=== PATIENT | female | born 1950 | race Caucasian/White ===

== ENCOUNTER 2016-09-09 12:32 | Observation (INO) | payer BC ==
[~2016-09-09] VITALS: Ht 162.6 cm; Wt 85.5 kg
[~2016-09-09 12:32] MED LIST: ALBU1AER9 INH; ASPI81TA28 PO; ATOR-24 PO; CALC0.009 TOP; CLOB-65 TOP; CYCL10TA6 PO; ERGO1CAP35 PO; FENO145T26 PO; INSUINJ14 SC; LEVO75TA5 PO; LISI-461 PO; LPR50X PO; METF1TAB53 PO; NTRGSL/4 UT; OXYC-57 PO
[2016-09-09 13:37] LABS: HEMATOCRIT 38.2 % (37-47); MEAN CELL VOLUME 81.3 fL (80-100); MEAN CORPUSCULAR HEMOGLOBIN 27.2 pg (25-34); MEAN CORPUSCULAR HGB CONC 33.5 g/dl (32-36); MEAN PLATELET VOLUME 10.3 fL (7.4-10.4); PLATELET COUNT 286 K/uL (130-400)
--- NOTE | 2016-09-09 13:37 | DIAGNOSTIC IMAGING REPORT ---
CHEST ONE VIEW PORTABLE CLINICAL HISTORY: chest pain dyspnea COMPARISON STUDY: No previous studies for comparison. FINDINGS: The bones soft tissues and hemidiaphragms are normal. The cardiomediastinal silhouette is normal. The lungs are clear. The pulmonary vasculature is normal. IMPRESSION: Negative chest. Electronically signed by: Hermilo Kraus M.D. 09/09/2016 1:36 PM Dictated Date/Time: 09/09/2016 1:36 PM
[2016-09-09 13:46] LABS: INR 0.9 (0.9-1.1); PARTIAL THROMBOPLASTIN RATIO 0.9; PROTHROMBIN TIME (PATIENT) 9.8 SECONDS (9.0-12.0)
[2016-09-09 13:56] LABS: BUN/CREATININE RATIO 14.5 (10-20); CALCIUM 9.1 mg/dl (8.5-10.1); CREATININE 0.73 mg/dl (0.60-1.20)
[2016-09-09 14:00] LABS: ALB/GLOB RATIO 0.9 (0.9-2); CKMB/CK RATIO 1.5 (0-3.0)
[2016-09-09] MEDS ORDERED: INSDGIPEN SQ (14:13)
[2016-09-09] MEDS ORDERED: ERGO1TAB10 PO (14:13)
[2016-09-09] MEDS ORDERED: PRLSR20 PO (14:13)
[2016-09-09] MEDS ORDERED: PRAV20TA PO (14:13)
[2016-09-09] MEDS ORDERED: IV FLUIDS COMPLETED PRN (15:45)
[2016-09-09] MEDS ORDERED: ASPIRIN 324 MG CHEW PO STA (15:59)
[2016-09-09] MEDS ORDERED: ONDANSETRON INJ 2 MG/ML 2 ML VIAL IV PRN (16:15)
[2016-09-09] MEDS ORDERED: ACETAMINOPHEN 325 MG TAB PO PRN (16:15)
[2016-09-09] MEDS ORDERED: NITROGLYCERIN 0.4 MG SL PER TAB CHARGE SL PRN (16:15)
--- NOTE | 2016-09-09 16:22 | History and Physical ---
History & Physical Date of Service Sep 09, 2016. History & Physical This is a 65 year old female with PMH of insulin dependent DM2, HTN, HLD, hypothyroidism presents with chest pain radiating to the shoulder blades, left arm and relieved with nitro. She states that she developed this pain while at rest and called cardiology, Dr. Martinez's office and was told to come in to the hospital. She has had a diagnostic cardiac cath in 2014, showing 30% disease, managed medically with aspirin, b-beverly, and statin. She states that the chest pain was associated with some shortness of breath. After coming to the ER and getting another nitro, her chest pain resolved. No other symptoms currently. VITALS: Last Vital Signs Documentation Date Time Temp Pulse Resp B/P Pulse Ox O2 Delivery O2 Flow Rate FiO2 09/09/16 15:17 77 20 152/85 97 Room Air 09/09/16 12:40 37.0 GEN: no acute distress HEENT: NC/AT CVS: +S1, S2, RRR LUNGS: CTA b/l, no wheezing ABD: soft, NT/ND EXT: no edema b/l LE Chest Pain, r/o ACS multiple risk factors: DM2, HTN, HLD cardiac cath in 2014 showed mild 30% disease initial set of cardiac enzymes negative no significant findings on EKG trend cardiac enzymes echo ordered cardiology consulted continue aspirin, b-beverly, statin for now was on CCB at one point, but due to vascular insufficiency, this was d/c'd DM2 check Ha1c insulin dependent DM2 insulin sliding scale glycemic control consultation
[2016-09-09] MEDS ORDERED: LSX20 PO (16:23)
[2016-09-09] MEDS ORDERED: DPRSO15 EXT (16:23)
[2016-09-09] MEDS ORDERED: PRAV40TA2 PO (16:25)
[2016-09-09] MEDS ORDERED: ALBUTEROL HFA 8 GM INHALER INH PRN (16:30)
[2016-09-09] MEDS ORDERED: GLUCOSE 40% GEL 15 GM TUBE PO PRN (16:30)
[2016-09-09] MEDS ORDERED: GLUCAGON FOR INJ 1 MG VIAL SQ PRN (16:30)
[2016-09-09] MEDS ORDERED: DEXTROSE 50% 50 ML SYR IV PRN (16:30)
[2016-09-09] MEDS ORDERED: GLUCOSE 10 TABS/TUBE PO PRN (16:30)
[2016-09-09 17:20] VITALS: BP 139/67; PULSE 89; TEMP 37; O2SAT 95; BMI 32.4
[2016-09-09] MEDS ORDERED: PHARMACY GLYCEMIC MGMT CONSULT PRN (18:00)
--- NOTE | 2016-09-09 19:05 | History and Physical ---
History & Physical Date & Time of Service: Sep 09, 2016 at 16:25 Chief Complaint: Hard Time Breathing, Some Chest Pain Primary Care Physician: Alexi Sutherland M.D. History of Present Illness Source: patient, clinic records This is a 65 y/o female with PMH of DM type 2, HTN, HL, s/p cath in February 2015 showing mild luminal irregularities, who presents to the ED with left arm pain. Pt reports episodes of ill defined pain going down her left arm and sharp pain between her shoulder blades. 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 The episodes lasted 5 minutes and were relieved completely with nitro. She had associated diaphoresis and SOB with the episodes. Patient states back in February 2015 prior to her catheterization she was having similar pain. Pt reports calling Dr. Martinez 's office and was told to come to the ER. Pt additionally reports a dry cough the past few nights while lying down. She had a few episodes of palpitations described as "heart pounding" last night and today. Pt denies dizziness, syncope , MCKEON, orthopnea, abdominal pain, N/V, urinary change, weight gain, edema, calf pain. Denies recent travel or surgery. She had baby ASA this morning. Past Medical/Surgical History Medical Problems: (1) Dyslipidemia Status: Chronic (2) GERD (gastroesophageal reflux disease) Status: Chronic (3) Hypertension Status: Chronic (4) Hypothyroidism Status: Chronic (5) Psoriasis Status: Chronic (6) Type 2 diabetes mellitus Status: Chronic (7) Venous insufficiency Status: Chronic Surgical Problems: (1) H/O cardiac catheterization Status: Resolved (2) H/O cardiac catheterization Permanent Comment: February 2015- no obstructive disease, mild luminal irregularities of less than 30% Status: Chronic (3) History of hysterectomy Status: Chronic (4) S/P appendectomy Status: Chronic (5) S/P cholecystectomy Status: Resolved (6) S/P cholecystectomy Status: Chronic (7) S/P hysterectomy Status: Resolved (8) S/P tonsillectomy and adenoidectomy Status: Chronic Family History FH: CAD (coronary artery disease) FATHER (onset in 60s. CABG x 5. ) Social History Smoking Status: Former Smoker (quit 20 years ago) Alcohol Use: none Drug Use: none Marital Status: Housing status: lives with significant other Occupational Status: employed Allergies Coded Allergies: No Known Allergies (Unverified , 09/09/16) Home Medications Scheduled Aspirin (Aspirin Ec), 81 MG PO DAILY Fenofibrate (Tricor ), 145 MG PO DAILY Insulin Aspart Penfill (Novolog Penfill), 1 DOSE SC ACHS Insulin Glargine (Lantus Solostar), 53 UNITS SQ PM Levothyroxine Sodium (Levothyroxine Sodium), 1 TAB PO DAILY Lisinopril (Lisinopril), 20 MG PO DAILY Metformin Hcl (Glucophage Ext Rel), 1,000 MG PO BID Metoprolol Tartrate (Metoprolol Tartrate), 50 MG PO BID Omeprazole (Prilosec), 40 MG PO DAILY Pravastatin Sodium (Pravastatin Sodium), 40 MG PO DAILY Scheduled PRN Albuterol (Proair Hfa), 2 PUFFS INH QID PRN for SOB/Wheezing Betamethasone Dip (Betamethasone Dipropionat), 1 APPLN EXT BID PRN for psoriasis Furosemide (Furosemide), 20 MG PO DAILY PRN for edema/ weight gain Nitroglycerin (Nitrostat), 0.4 MG UT PRN PRN for Chest Pain Review of Systems Ten point review of systems performed with pertinent positives and negatives noted in HPI. Physical Exam Vital Signs Date Time Temp Pulse Resp B/P Pulse Ox O2 Delivery O2 Flow Rate FiO2 09/09/16 15:17 77 20 152/85 97 Room Air 09/09/16 13:33 74 09/09/16 12:40 37.0 79 20 172/83 95 Room Air General Appearance: no apparent distress, + pertinent finding (pleasant alert 65 y/o female) Head: normocephalic, atraumatic Eyes: normal inspection, PERRL, EOMI, sclerae normal ENT: hearing grossly normal, pharynx normal Neck: supple, no JVD, no carotid bruits, trachea midline Respiratory/Chest: lungs clear, normal breath sounds, no respiratory distress Cardiovascular: regular rate, rhythm, no murmur, normal peripheral pulses Abdomen/GI: normal bowel sounds, non tender, soft Back: + pertinent finding (no thoracic paraspinal muscle tenderness) Extremities/Musculoskelatal: no calf tenderness, no pedal edema, + pertinent finding (+ mild point tenderness on left shoulder and mild pain on ROM left shoulder) Neurologic/Psych: alert, normal mood/affect, oriented x 3, + pertinent finding (grossly nonfocal) Skin: normal color, warm/dry, no rash (no rash on the chest) Diagnostics Laboratory Results Results Past 24 Hours Test 09/09/16 13:30 09/09/16 13:32 09/09/16 15:30 Range/Units White Blood Count 9.10 4.8-10.8 K/uL Red Blood Count 4.70 4.2-5.4 M/uL Hemoglobin 12.8 12.0-16.0 g/dL Hematocrit 38.2 37-47 % Mean Corpuscular Volume 81.3 80-100 fL Mean Corpuscular Hemoglobin 27.2 25-34 pg Mean Corpuscular Hemoglobin Concent 33.5 32-36 g/dl RDW Standard Deviation 40.8 36.4-46.3 fL RDW Coefficient of Variation 13.6 11.5-14.5 % Platelet Count 286 130-400 K/uL Mean Platelet Volume 10.3 7.4-10.4 fL Prothrombin Time 9.8 9.0-12.0 SECONDS Prothromb Time International Ratio 0.9 0.9-1.1 Activated Partial Thromboplast Time 23.4 21.0-31.0 SECONDS Partial Thromboplastin Ratio 0.9 D-Dimer 430 0-500 ug/L FEU Sodium Level 143 136-145 mmol/L Potassium Level 4.0 3.5-5.1 mmol/L Chloride Level 108 98-107 mmol/L Carbon Dioxide Level 25 21-32 mmol/L Anion Gap 10.0 3-11 mmol/L Blood Urea Nitrogen 11 7-18 mg/dl Creatinine 0.73 0.60-1.20 mg/dl Est Creatinine Clear Calc Drug Dose 84.9 ml/min Estimated GFR () 101.6 Estimated GFR (Non- 87.7 BUN/Creatinine Ratio 14.5 10-20 Random Glucose 113 70-99 mg/dl Calcium Level 9.1 8.5-10.1 mg/dl Total Bilirubin 0.3 0.2-1 mg/dl Aspartate Amino Transf (AST/SGOT) 22 15-37 U/L Alanine Aminotransferase (ALT/SGPT) 52 12-78 U/L Alkaline Phosphatase 85 45-117 U/L Total Creatine Kinase 48 26-192 U/L Creatine Kinase MB 0.7 0.5-3.6 ng/ml Creatine Kinase MB Ratio 1.5 0-3.0 Total Protein 7.2 6.4-8.2 gm/dl Albumin 3.5 3.4-5.0 gm/dl Globulin 3.7 2.5-4.0 gm/dl Albumin/Globulin Ratio 0.9 0.9-2 Bedside Troponin I 0.000 0-0.045 ng/ml Bedside Glucose 80 70-90 mg/dl Diagnostic Radiology CHEST ONE VIEW PORTABLE CLINICAL HISTORY: chest pain dyspnea COMPARISON STUDY: No previous studies for comparison. FINDINGS: The bones soft tissues and hemidiaphragms are normal. The cardiomediastinal silhouette is normal. The lungs are clear. The pulmonary vasculature is normal. IMPRESSION: Negative chest. EKG NSR, 77 bpm, nonspecific T wave abnormality in lateral leads. T wave abnormality appears improved on my comparison with outpatient EKG in [facility] from 04/2016 Impression Assessment and Plan CHEST PAIN Rule out ACS; risk factors include DM, HTN, HL, positive family hx Pain resolved with nitro Cardic cath February 2015- no obstructive disease, mild luminal irregularities of less than 30% EKG no significant change Initial troponin negative; d dimer negative Trend serial cardiac enzymes Check echo Continue aspirin, BB, MIRTHA-I, statin Check lipid panel in am DM TYPE 2 Insulin dependent Consult pharmacy for glycemic control Check A1c in am HYPERTENSION BP initially elevated; now controlled Continue metoprolol and lisinopril HYPOTHYROIDISM Check TSH Continue levothyroxine DVT PROPHYLAXIS Lovenox SQ Patient seen in collaboration with Dr. Taylor. Please see his addendum. VTE Prophylaxis VTE Risk Assessment Done? Y/N: Yes Risk Level: Moderate
--- NOTE | 2016-09-09 19:25 | EMERGENCY ROOM VISIT NOTE ---
History Report prepared by Steven: Carol Billings Under the Supervision of: Dr. Matt Courtney M.D. First contact with patient: 14:17 Chief Complaint: SHORTNESS OF BREATH Stated Complaint: HARD TIME BREATHING, SOME CHEST PAIN Nursing Triage Summary: Triage note: Pt reports since yesterday she has had shortness of breath and pain in left arm and between shoulder blades. History of Present Illness The patient is a 65 year old female who presents to the Emergency Room with complaints of persistent shortness of breath that began yesterday. She currently rates her discomfort as a 4/10 in severity. The patient states that yesterday she noticed some left sided chest discomfort. She states that she left work early, because she noticed pain radiating down her left arm. The patient states that she noticed increased pain with a deep breath, and states that she didn't feel like she could get enough air. The patient states that she took some nitro, and notes relief of her symptoms. She states that throughout last night and this morning she has noticed tachycardia. The patient states that she has intermittently had chest pain since yesterday. She additionally associates diaphoresis with her symptoms. The patient notes a recent cough with lying down, but denies any other cold symptoms. She states that she takes aspirin daily. The patient notes a history of a cardiac catheterization 1 1/2 years ago that revealed a few blockages. She states that nothing was done at that time. Pt denies LOC, headache, fevers, chills, visual changes, neck pain, tearing pain radiating to the back, personal history or family history of aneurysm or pulmonary embolism, uncontrolled hypertension, breathing difficulties, leg swelling, coagulation abnormalities, prolonged travel, recent surgery or immobilization, nausea, vomiting, abdominal pain, melena, hematochezia, urinary symptoms, numbness, weakness, lymphadenopathy, rash, or other complaints. Source of History: patient Onset: yesterday Position: other (global) Symptom Intensity: 4/10 Quality: other (shortness of breath) Timing: other (persistent) Associated Symptoms: + chest pain, + cough, + diaphoresis Note: Associated Symptoms: left arm pain Review of Systems See HPI for pertinent positives and negatives. A total of ten systems were reviewed and were otherwise negative. Past Medical & Surgical Medical Problems: (1) Chest pain (2) Dyslipidemia (3) GERD (gastroesophageal reflux disease) (4) Hypertension (5) Hypothyroidism (6) Psoriasis (7) Type 2 diabetes mellitus (8) Venous insufficiency Surgical Problems: (1) H/O cardiac catheterization (2) H/O cardiac catheterization (3) History of hysterectomy (4) S/P appendectomy (5) S/P cholecystectomy (6) S/P cholecystectomy (7) S/P hysterectomy (8) S/P tonsillectomy and adenoidectomy Family History FH: CAD (coronary artery disease) Social History Smoking Status: Never Smoker Marital Status: Housing Status: lives with significant other Occupation Status: employed Current/Historical Medications Scheduled Aspirin (Aspirin Ec), 81 MG PO DAILY Fenofibrate (Tricor ), 145 MG PO DAILY Insulin Aspart Penfill (Novolog Penfill), 1 DOSE SC ACHS Insulin Glargine (Lantus Solostar), 53 UNITS SQ PM Levothyroxine Sodium (Levothyroxine Sodium), 1 TAB PO DAILY Lisinopril (Lisinopril), 20 MG PO DAILY Metformin Hcl (Glucophage Ext Rel), 1,000 MG PO BID Metoprolol Tartrate (Metoprolol Tartrate), 50 MG PO BID Omeprazole (Prilosec), 40 MG PO DAILY Pravastatin Sodium (Pravastatin Sodium), 40 MG PO DAILY Scheduled PRN Albuterol (Proair Hfa), 2 PUFFS INH QID PRN for SOB/Wheezing Betamethasone Dip (Betamethasone Dipropionat), 1 APPLN EXT BID PRN for psoriasis Furosemide (Furosemide), 20 MG PO DAILY PRN for edema/ weight gain Nitroglycerin (Nitrostat), 0.4 MG UT PRN PRN for Chest Pain Allergies Coded Allergies: No Known Allergies (Unverified , 09/09/16) Physical Exam Vital Signs Date Time Temp Pulse Resp B/P Pulse Ox O2 Delivery O2 Flow Rate FiO2 09/09/16 16:51 73 20 149/83 96 Room Air 09/09/16 15:17 77 20 152/85 97 Room Air 09/09/16 13:33 74 09/09/16 12:40 37.0 79 20 172/83 95 Room Air Physical Exam GENERAL: Awake, alert, well-appearing, in no distress HENT: Normocephalic, atraumatic. Oropharynx unremarkable. EYES: Normal conjunctiva. Sclera non-icteric. NECK: Supple. No nuchal rigidity. FROM. No JVD. RESPIRATORY: Clear to auscultation. CARDIAC: Regular rate, normal rhythm. Extremities warm and well perfused. Pulses equal. ABDOMEN: Soft, non-distended. No tenderness to palpation. No rebound or guarding. No masses. RECTAL: Deferred. MUSCULOSKELETAL: Chest examination reveals no tenderness. The back is symmetrical on inspection without obvious abnormality. There is no CVA tenderness to palpation. No joint edema. LOWER EXTREMITIES: Calves are equal size bilaterally and non-tender. No edema. No discoloration. NEURO: Normal sensorium. No sensory or motor deficits noted. SKIN: No rash or jaundice noted. Medical Decision & Procedures ER Provider Diagnostic Interpretation: X-ray: Per my interpretation, radiologist review. CHEST ONE VIEW PORTABLE CLINICAL HISTORY: chest pain dyspnea COMPARISON STUDY: No previous studies for comparison. FINDINGS: The bones soft tissues and hemidiaphragms are normal. The cardiomediastinal silhouette is normal. The lungs are clear. The pulmonary vasculature is normal. IMPRESSION: Negative chest. Electronically signed by: Hermilo Kraus M.D. 09/09/2016 1:36 PM Dictated Date/Time: 09/09/2016 1:36 PM Laboratory Results 09/09/16 13:30 09/09/16 13:30 Test 09/09/16 13:30 09/09/16 13:32 09/09/16 15:30 Red Blood Count 4.70 M/uL (4.2-5.4) Mean Corpuscular Volume 81.3 fL (80-100) Mean Corpuscular Hemoglobin 27.2 pg (25-34) Mean Corpuscular Hemoglobin Concent 33.5 g/dl (32-36) RDW Standard Deviation 40.8 fL (36.4-46.3) RDW Coefficient of Variation 13.6 % (11.5-14.5) Mean Platelet Volume 10.3 fL (7.4-10.4) Prothrombin Time 9.8 SECONDS (9.0-12.0) Prothromb Time International Ratio 0.9 (0.9-1.1) Activated Partial Thromboplast Time 23.4 SECONDS (21.0-31.0) Partial Thromboplastin Ratio 0.9 D-Dimer 430 ug/L FEU (0-500) Anion Gap 10.0 mmol/L (3-11) Est Creatinine Clear Calc Drug Dose 84.9 ml/min Estimated GFR () 101.6 Estimated GFR (Non- 87.7 BUN/Creatinine Ratio 14.5 (10-20) Calcium Level 9.1 mg/dl (8.5-10.1) Total Bilirubin 0.3 mg/dl (0.2-1) Aspartate Amino Transf (AST/SGOT) 22 U/L (15-37) Alanine Aminotransferase (ALT/SGPT) 52 U/L (12-78) Alkaline Phosphatase 85 U/L (45-117) Total Protein 7.2 gm/dl (6.4-8.2) Albumin 3.5 gm/dl (3.4-5.0) Globulin 3.7 gm/dl (2.5-4.0) Albumin/Globulin Ratio 0.9 (0.9-2) Bedside Troponin I 0.000 ng/ml (0-0.045) Bedside Glucose 80 mg/dl (70-90) Laboratory results reviewed by me ECG Indication: chest pain, SOB/dyspnea Rate (beats per minute): 77 Rhythm: normal sinus Findings: nonspecific-ST abn, no ectopy, other (normal intervals) ED Course 1423: The patient was evaluated in room A4B. A complete history and physical exam was performed. I discussed all the exam findings with her and I discussed the treatment plan. She verbalized complete understanding and agreement. She is going to be evaluated for further treatment. 1456: I discussed the patients case with Selena Ruiz PA-C. She is going to evaluate the patient for further treatment. Medical Decision Triage Nursing notes reviewed. The patient's presentation and history were concerning for chest pain. Etiologies such as cardiac ischemia, aortic dissection, pulmonary embolism, pneumonia, pneumothorax, musculoskeletal, infections, gastrointestinal, as well as others were entertained. The patient was evaluated. She had already taken aspirin. Patient had a nonischemic ECG. She was currently pain-free. Her CBC, chemistry panel, LFTs, lipase, d-dimer, cardiac markers and chest x-ray were unremarkable. She has known coronary disease. Given her symptoms. She will need further evaluation and management. Her actionscript developer office directed her this way. I did consult with internal medicine. The patient was evaluated in the Emergency Room and admitted for further treatment. The chart was completed utilizing [employer] Speech voice recognition software. Grammatical errors, random word insertions, pronoun errors, and incomplete sentences are an occasional consequence of this system due to software limitations, ambient noise, and hardware issues. Any formal questions or concerns about the content, text, or information contained within the body of this dictation should be directly addressed to the physician for clarification. Consults Time Called: [id number] Consulting Physician: Selena Ruiz PA-C Returned Call: [phone] I discussed the patients case with Selena Ruiz PA-C. She is going to evaluate the patient for further treatment. Impression Primary Impression: Left sided chest pain Scribe Attestation The scribe's documentation has been prepared under my direction and personally reviewed by me in its entirety. I confirm that the note above accurately reflects all work, treatment, procedures, and medical decision making performed by me. Departure Information Dispostion Being Evaluated By Hospitalist Referrals No Doctor, Assigned (PCP)
[2016-09-09 19:26] VITALS: BP 158/70; PULSE 80; TEMP 37.1; O2SAT 97
[2016-09-09 19:38] LABS: CKMB/CK RATIO 1.7 (0-3.0)
[2016-09-09] MEDS: INSULIN ASPART 100 UNITS/ML 3 ML PEN SC SCH (21:00)
[2016-09-09] MEDS: METOPROLOL TARTRATE 50 MG TAB PO SCH (21:03)
[2016-09-09] MEDS ORDERED: INSULIN GLARGINE SOLOSTAR 100 UNITS/ML 3 ML PEN SC SCH (22:30)
[2016-09-09 23:42] VITALS: BP 115/70; PULSE 65; TEMP 36.9; O2SAT 94
[2016-09-09 23:59] VITALS: O2SAT 94
[2016-09-10 04:23] VITALS: BP 116/74; PULSE 80; TEMP 36.6; O2SAT 93
[2016-09-10] MEDS ORDERED: LEVOTHYROXINE 75 MCG TAB PO SCH (06:00)
[2016-09-10 07:33] VITALS: BP 129/70; PULSE 79; TEMP 36.9; O2SAT 93
[2016-09-10 08:41] LABS: CHOLESTEROL/HDL RATIO 7.7; THYROID STIMULATING HORMONE 0.262 uIu/ml (0.300-4.500)
[2016-09-10] MEDS: METOPROLOL TARTRATE 50 MG TAB PO SCH (08:46)
[2016-09-10] MEDS: INSULIN ASPART 100 UNITS/ML 3 ML PEN SC SCH ×3 (08:52→17:16)
[2016-09-10 08:56] LABS: ESTIMATED AVERAGE GLUCOSE 209 mg/dl; HA1C FLAG Normal (Normal)
[2016-09-10] MEDS ORDERED: FENOFIBRATE 145 MG TAB PO SCH (09:00)
[2016-09-10] MEDS ORDERED: PANTOprazole SOD 40 MG TAB PO SCH (09:00)
[2016-09-10] MEDS ORDERED: ENOXAPARIN 40 MG/0.4 ML SYR SC SCH (09:00)
[2016-09-10] MEDS ORDERED: ASPIRIN 81 MG ECTAB PO SCH (09:00)
[2016-09-10] MEDS ORDERED: INSULIN GLARGINE SOLOSTAR 100 UNITS/ML 3 ML PEN SC SCH ×2 (09:00→21:00)
[2016-09-10] MEDS ORDERED: LISINOPRIL 20 MG TAB PO SCH (09:00)
[2016-09-10] MEDS ORDERED: PRAVASTATIN SOD 40 MG TAB PO SCH (09:00)
[2016-09-10] MEDS ORDERED: CALCIUM CARBONATE 500 MG CHEWABLE PO PRN (10:30)
[2016-09-10] MEDS ORDERED: PERFLUTREN LIPID MICROSPHERE (DEFINITY) IV ONE (10:34)
--- NOTE | 2016-09-10 10:37 | Progress Note ---
Medicine Progress Note Date & Time of Visit: Sep 10, 2016 at 10:32. Subjective seen resting in bed, comfortable denies recurrence of chest or arm discomfort since admission no dyspnea, dizziness, nausea reports mild heartburn but no dysphagia, poor appetite, changes with BM no other symptoms Objective Last 8 Hrs Date Time Temp Pulse Resp B/P Pulse Ox O2 Delivery O2 Flow Rate FiO2 09/10/16 08:00 Room Air 09/10/16 07:33 36.9 79 18 129/70 93 Room Air 09/10/16 04:23 36.6 80 18 116/74 93 Room Air 09/10/16 04:00 Room Air Physical Exam: General- oriented x 3, not in distress, speaks in sentences with no effort Eyes-anicteric ENT- oropharynx clear Neck- supple, no JVD, no adenopathy, no thyromegaly Lungs- clear breath sounds bilaterally, no rales/wheezes Heart- normal rate, regular rhythm; no murmurs Abdomen- normal bowel sounds, soft, nontender Extremities- no pretibial edema, no calf tenderness; peripheral pulses intact Neuro- alert, oriented x 3;no gross deficits Skin- warm & dry Laboratory Results: Last 24 Hours Test 09/09/16 13:30 09/09/16 13:32 09/09/16 15:30 09/09/16 18:59 White Blood Count 9.10 K/uL Red Blood Count 4.70 M/uL Hemoglobin 12.8 g/dL Hematocrit 38.2 % Mean Corpuscular Volume 81.3 fL Mean Corpuscular Hemoglobin 27.2 pg Mean Corpuscular Hemoglobin Concent 33.5 g/dl RDW Standard Deviation 40.8 fL RDW Coefficient of Variation 13.6 % Platelet Count 286 K/uL Mean Platelet Volume 10.3 fL Prothrombin Time 9.8 SECONDS Prothromb Time International Ratio 0.9 Activated Partial Thromboplast Time 23.4 SECONDS Partial Thromboplastin Ratio 0.9 D-Dimer 430 ug/L FEU Sodium Level 143 mmol/L Potassium Level 4.0 mmol/L Chloride Level 108 mmol/L Carbon Dioxide Level 25 mmol/L Anion Gap 10.0 mmol/L Blood Urea Nitrogen 11 mg/dl Creatinine 0.73 mg/dl Est Creatinine Clear Calc Drug Dose 84.9 ml/min Estimated GFR () 101.6 Estimated GFR (Non- 87.7 BUN/Creatinine Ratio 14.5 Random Glucose 113 mg/dl Calcium Level 9.1 mg/dl Total Bilirubin 0.3 mg/dl Aspartate Amino Transf (AST/SGOT) 22 U/L Alanine Aminotransferase (ALT/SGPT) 52 U/L Alkaline Phosphatase 85 U/L Total Creatine Kinase 48 U/L 48 U/L Creatine Kinase MB 0.7 ng/ml 0.8 ng/ml Creatine Kinase MB Ratio 1.5 1.7 Total Protein 7.2 gm/dl Albumin 3.5 gm/dl Globulin 3.7 gm/dl Albumin/Globulin Ratio 0.9 Bedside Troponin I 0.000 ng/ml Bedside Glucose 80 mg/dl Troponin I < 0.015 ng/ml Test 09/09/16 20:59 09/10/16 00:55 09/10/16 06:39 09/10/16 07:28 Bedside Glucose 132 mg/dl 203 mg/dl Total Creatine Kinase 48 U/L Creatine Kinase MB < 0.5 ng/ml Creatine Kinase MB Ratio Troponin I < 0.015 ng/ml Estimated Average Glucose 209 mg/dl Hemoglobin A1c 8.9 % Triglycerides Level 528 mg/dl Cholesterol Level 277 mg/dl HDL Cholesterol 36 mg/dl LDL Cholesterol, Calculated mg/dl VLDL Cholesterol, Calculated mg/dl Cholesterol/HDL Ratio 7.7 Thyroid Stimulating Hormone (TSH) 0.262 uIu/ml Assessment & Plan CHEST PAIN RULE OUT [facility] cath February 2015- no obstructive disease, mild luminal irregularities of less than 30% cardiac markers negative x 3 ekg no signs of ischemia echo: pending - cardiology consulted - possible stress test today - continue Metoprolol, Lisinopril, Pravastatin DM TYPE 2 Insulin dependent q1c 8.9 Consult pharmacy for glycemic control HYPERTENSION Continue metoprolol and lisinopril HYPOTHYROIDISM TSH: 0.26 check free t4 Continue levothyroxine HYPERTRIGLYCERIDEMIA TG 528 LDL not measurable due to elevated TG - on Pravastatin, Fenofibrate - diet, exercise monitor outpatient DVT PROPHYLAXIS Lovenox SQ DISPOSITION possible d/c home this afternoon when cleared by Bone Worker Current Inpatient Medications: Current Inpatient Medications Medications (Trade) Dose Ordered Sig/Kelsea Route Start Time Stop Time Status Last Admin Dose Admin Miscellaneous (Iv Fluids Completed) 1 ea PRN PRN N/A 09/09/16 15:45 09/09/17 15:44 Enoxaparin Sodium (Lovenox Inj) 40 mg Q24H SC 09/10/16 09:00 10/10/16 08:59 09/10/16 08:46 40 MG Acetaminophen (Tylenol Tab) 650 mg Q4H PRN PO 09/09/16 16:15 10/09/16 16:14 09/09/16 19:25 650 MG Ondansetron HCl (Zofran Inj) 4 mg Q6H PRN IV 09/09/16 16:15 10/09/16 16:14 Nitroglycerin (Nitrostat Tab) 0.4 mg UD PRN SL 09/09/16 16:15 10/09/16 16:14 Miscellaneous Information (Consult Glycemic Management Pharmacy) 1 ea UD PRN N/A 09/09/16 18:00 10/09/16 17:59 Glucose (Glucose 40% Gel) 15-30 GRAMS 15 GRAMS... UD PRN PO 09/09/16 16:30 10/09/16 16:29 Glucose (Glucose Chew Tab) 4-8 Tablets 4 Tabl... UD PRN PO 09/09/16 16:30 10/09/16 16:29 Dextrose (Dextrose 50% 50ML Syringe) 25-50ML OF 50% DW IV FOR... UD PRN IV 09/09/16 16:30 10/09/16 16:29 Glucagon (Glucagon Inj) 1 mg UD PRN SQ 09/09/16 16:30 10/09/16 16:29 Albuterol (Ventolin Hfa Inhaler) 2 puffs QID PRN INH 09/09/16 16:30 10/09/16 16:29 Aspirin (Ecotrin Tab) 81 mg DAILY PO 09/10/16 09:00 10/10/16 08:59 09/10/16 08:45 81 MG Fenofibrate (Tricor Tab) 145 mg DAILY PO 09/10/16 09:00 10/10/16 08:59 09/10/16 08:45 145 MG Levothyroxine Sodium (Synthroid Tab) 75 mcg DAILYBB PO 09/10/16 06:00 10/10/16 05:59 09/10/16 06:07 75 MCG Lisinopril (Zestril Tab) 20 mg DAILY PO 09/10/16 09:00 10/10/16 08:59 09/10/16 08:45 20 MG Metoprolol Tartrate (Lopressor Tab) 50 mg BID PO 09/09/16 21:00 10/09/16 20:59 09/10/16 08:46 50 MG Miscellaneous Information (Order Awaiting Action) 1 ea QS N/A 09/09/16 18:00 10/09/16 17:59 Pantoprazole Sodium (Protonix Tab) 40 mg QAM PO 09/10/16 09:00 10/10/16 08:59 09/10/16 08:45 40 MG Pravastatin Sodium (Pravachol Tab) 40 mg DAILY PO 09/10/16 09:00 10/10/16 08:59 09/10/16 08:45 40 MG Insulin Aspart (novoLOG ASPART) SLIDING SCALE ACHS SC 09/09/16 21:00 10/09/16 20:59 09/10/16 08:52 6 UNITS Insulin Glargine (Lantus Solostar Pen) SEE PROTOCOL BID SC 09/10/16 21:00 10/10/16 20:59
[2016-09-10 10:52] VITALS: Ht 162.6 cm; Wt 85.5 kg
[2016-09-10 11:19] VITALS: BP 125/74; PULSE 70; TEMP 36.9; O2SAT 93
--- NOTE | 2016-09-10 12:08 | CARDIOLOGY CONSULTATION ---
DATE OF CONSULTATION: 09/10/2016 REFERRING PHYSICIAN: Dr. Jordan. PRIMARY CARE PHYSICIAN: Dr. Alexi Sutherland. HISTORY OF PRESENT ILLNESS: The patient is a 65-year-old female whose history is notable for: 1. Type 2 diabetes mellitus. 2. Chronic hypertension. 3. Mixed dyslipidemia. 4. Mild coronary atherosclerosis by cardiac catheterization in February 2015 without obstructive disease. 5. Hypothyroidism. 6. Gastroesophageal reflux. The patient presents now noting symptoms which began approximately 2 days prior to admission of increasing shortness of breath and heart pounding in her chest with physical exertion. She notes no associated syncope or near syncope. On the day of admission, she has had increasing episodes and complaints, walked up a flight of stairs with laundry and noted heart pounding in throat. She felt breathless and mildly diaphoretic. She took 1 nitroglycerin with symptoms potentially aiding in complaints. Due to concern, she presented for further evaluation. On initial evaluation in the Emergency Room, pain was improved. She does note a wheezy cough, worse when lying flat, times several days. Notes no fevers or chills, though had sweats in association with issues. Notes no melena, hematochezia, dysuria or hematuria. Has been taking medications as prescribed. Notes no acute medication changes. She does have a moderately active job and noted declining exercise tolerance during activities. REVIEW OF SYSTEMS: Otherwise negative. ALLERGIES: None. MEDICATIONS: Prior to hospitalization were aspirin 81 mg per day, fenofibrate 145 mg p.o. every day, levothyroxine 75 mcg p.o. every day, lisinopril 20 mg p.o. every day, metformin 1000 mg b.i.d., metoprolol 50 mg b.i.d., omeprazole 40 mg p.o. every day, pravastatin 40 mg p.o. every day, insulin sliding scale. PAST SURGICAL HISTORY: Notable for prior total hysterectomy, tonsillectomy, appendectomy, cholecystectomy. FAMILY HISTORY: Positive for heart disease with father undergoing coronary bypass grafting in his 50s, multiple family members with history of diffuse coronary disease. SOCIAL HISTORY: The patient resides in [place]. 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 She is a nonsmoker x20 years with prior [id number] history of tobacco use prior to discontinuation. She is a rare alcohol user. PHYSICAL EXAMINATION: VITAL SIGNS: Heart rate is 79, blood pressure is 129/70, O2 saturation is 93% on room air. HEENT: Normocephalic, atraumatic. Nares without discharge. Throat was clear. LUNGS: Reveal wheezy cough with forced expiration with clear bases. CARDIOVASCULAR: Regular. There is no S3 gallop. ABDOMEN: Soft, nontender. EXTREMITIES: Without cyanosis or clubbing. There is no peripheral edema. There is no palpable cord or Homans sign. LABORATORY STUDIES: White cell count is 9.1, hemoglobin is 12.8, hematocrit is 38.2. Sodium is 143, potassium is 4.0, chloride is 108, bicarbonate is 25, BUN is 11, creatinine is 0.73. Troponin since admission are negative x2. CK and MB fractions are normal. Lipids demonstrate hypertriglyceridemia, total cholesterol 277, HDL 36. TSH is depressed at 0.26. Chest x-ray reveals no infiltrate or edema. EKGs since admission demonstrate normal tracings other than minimal nonspecific ST-segment changes and no evolution on serial testing. IMPRESSION: A 65-year-old female presents now with exertional heart pounding and chest tightness with partial relief with nitroglycerin. Symptoms were preceded by to 2- to 3-day history of increasing shortness of breath and cough, nonproductive, and intermittent cold sweats. Initial cardiac enzymes and EKGs do not reflect ischemia. Prior cardiac catheterization was last performed in February 2015 with only mild coronary atherosclerosis and no obstructive disease. Overall impression, this likely appears noncardiac in nature, possibly secondary to upper respiratory issues; however, stress echocardiography will be ordered today for further assessment given multiple risk factors with family history of premature coronary disease. We will continue current medications including lisinopril, beta beverly with metoprolol 50 b.i.d., aspirin, and lipid reduction with pravastatin and fenofibrate combination with prior intolerance of higher dose statins. Further recommendations pending results of stress testing. Will likely need evaluation of pulmonary complaints as well.
--- NOTE | 2016-09-10 13:21 | Pharmacy Progress Note ---
Glycemic Control Intl Consult Date of Service Sep 10, 2016. Scope Glycemic Pharmacist consulted by Alejandra Newsome on 09/09/16 for glycemic control and to write orders per [facility] inpatient glycemic control protocol Objective Weight (Kilograms): 85.500 Accuchecks BSG (last 24hrs): Test 09/09/16 13:30 09/09/16 15:30 09/09/16 20:59 09/10/16 06:39 Random Glucose 113 mg/dl (70-99) Bedside Glucose 80 mg/dl (70-90) 132 mg/dl (70-90) 203 mg/dl (70-90) Test 09/10/16 11:08 Bedside Glucose 162 mg/dl (70-90) Laboratory Data (last 24hrs) Test 09/09/16 13:30 09/10/16 07:28 Anion Gap 10.0 mmol/L BUN/Creatinine Ratio 14.5 Blood Urea Nitrogen 11 mg/dl Creatinine 0.73 mg/dl Potassium Level 4.0 mmol/L Sodium Level 143 mmol/L White Blood Count 9.10 K/uL Hemoglobin A1c 8.9 % HbA1c Test 09/10/16 07:28 Hemoglobin A1c 8.9 % (4.5-5.6) H Recent Pertinent Medications Outpatient Anti-diabetic Regimen: * Lantus 53 units SQ q PM * NovoLog sliding scale * Metformin 1000mg PO BID with meals * A1c = 8.9 % 09/10/16 The patient is currently receiving: * Basal insulin: Lantus 10 units every 12 hours * Correctional Insulin: NovoLog Correction per scale ACHS Goal Range: Low 120 mg/dL - High 150 mg/dL Correction Factor: 25 mg/dL/unit * Prandial insulin: Per carb ratio of 1 unit per 9 grams CHO consumed * Oral Agents: held on admission Assessment & Plan ASSESSMENT: * ADA & AACE recommend a goal blood sugar range 140-180 mg/dl for the majority of critically ill & non-critically ill patients. However, more stringent targets may be selected in individual cases. Utilizing 120-150mg/dL as patient is non-elderly. * Uses basal/bolus insulin + metformin as an outpatient and follows with [facility] for glycemic control * A1c improved over the last 6 months 09/10/16 * BSGs WNL (113mg/dL) on admission, though last doses of insulins unknown * reduced dose of Lantus given last evening since BSG at dinner was below goal range at 80mg/dL * This AM, fasting BSG elevated at 203mg/dL * since reduce dose of Lantus given yesterday evening, will give supplemental dose of Lantus this AM * then continue Lantus BID * A1c current PLAN FOR INPATIENT GLYCEMIC CONTROL: * Lantus 20 units SQ x1 dose this AM * Lantus SQ BID * 20 units if BSG is below 140mg/dL * 40 units if BSG is above 140mg/dL * NovoLog SQ AC and HS * Correction factor 25mg/dL/unit * Carb ratio: 1 unit per 9g of CHO consumed * Goal range: 120-150mg/dL * Hold metformin until PO intake adequate/closer to discharge * A1c - current * added to discharge instructions RECOMMENDATIONS FOR DISCHARGE: * Continue home regimen and follow up with [facility] * Please note that the plan above was derived based on current level of insulin resistance and hospital stress. These recommendations are appropriate for inpatient admission only. Plan of care upon discharge will need to be reassessed to avoid potential outpatient hypo/hyperglycemia. Thank you.
--- NOTE | 2016-09-10 14:42 | EXERCISE STRESS ECHO ---
*NOTICE TO RECEIVING CONSTITUTION PARTY AGENCY This information is strictly Confidential and protected under [place] law. [place] law prohibits you from making any further disclosure of this information unless further disclosure is expressly permitted by the written consent of the person to whom it pertains or is authorized by law. A general authorization for the release of medical or other information is not sufficient for this purpose. Hospital accepts no responsibility if the information is made available to any other person, INCLUDING THE PATIENT. Interpretation Summary * Name: CAROLINA ENRIQUE Study Date: 09/10/2016 08:45 AM BP: 116/74 mmHg * Patient Location: C.2T\S\S238\S\2 HR: 80 * : 1950 (M/d/yyyy) Gender: Female Height: 64 in * Age: 65 yrs Ethnicity: [place] Weight: 194 lb * Ordering Physician: Gracie Newsome * Performed By: Eileen Zuniga RDCS * * Reason For Study: Chest pain * BSA: 1.9 m2 * The study was technically adequate. * STRESS STUDY: Normal exercise stress echocardiogram. No echocardiographic or ECG evidence of myocardial ischemia having achieved heart rate adequate for diagnostic purposes. * -- Conclusions -- * Ejection Fraction = 65-70%. * There is moderate concentric left ventricular hypertrophy. * Grade I diastolic dysfunction, (abnormal relaxation pattern). * No significant valvular pathology. Procedure Details * ECHOEX, CPT #[id number] * ECHO DOPPLER, CPT #[id number] * ECHO COLOR FLOW, CPT #[id number] * A contrast injection of Definity was performed to improve assessment of LV function. * Contrast was injected into an intravenous site in the right arm. * One vial of Definity ultrasound contrast was diluted in normal saline to a total volume of 10 ml. A total of '6' ml of solution was administered during imaging. * Lot # [id number] of Definity utilized for procedure. * Expiration date AUG 30. * The attending nurse who injected the contrast agent was Rema De La Torre RN. Left Ventricular Findings with Stress * Name: CAROLINA ENRIQUE Study Date: 09/10/2016 08:45 AM BP: 116/74 mmHg Patient Location: C.2T\S\S238\S\2 HR: 80 : 1950 (M/d/yyyy) Gender: Female Height: 64 in Age: 65 yrs Ethnicity: [place] Weight: 194 lb Ordering Physician: Gracie Newsome Performed By: Eileen Zuniga [facility] Reason For Study: Chest pain BSA: 1.9 m2 Left Ventricle * The left ventricle is normal in size. * There is moderate concentric left ventricular hypertrophy. * Ejection Fraction = 65-70%. * Left ventricular systolic function is normal. * Resting wall motion: Normal. Stress wall motion: Appropriate increase in Left ventricular systolic function and decrease in cavity size. No stress induced segmental wall motion abnormalities. Right Ventricle * The right ventricular cavity size is normal (basal dimension <4.2 cm in right ventricular apical 4-chamber view). * The right ventricular systolic function is normal as assessed by tricuspid annular plane systolic excursion (TAPSE) (normal >1.5 cm). Atria * The left atrial size is normal. * Right atrial size is normal. * No ASD detected; PFO is not assessed. Mitral Valve * The mitral valve is normal. * There is no mitral valve stenosis. * Significant mitral regurgitation is absent. Tricuspid Valve * The tricuspid valve is normal. * There is no tricuspid stenosis. * Significant tricuspid regurgitation is absent. Aortic Valve * The aortic valve is trileaflet. * No hemodynamically significant valvular aortic stenosis. * No aortic regurgitation is present. Pulmonic Valve * The pulmonic valve is not well visualized. Great Vessels * The aortic root is normal size. * Normal IVC diameter. Pericardium * There is no pericardial effusion. Stress Parameters * The baseline ECG displays normal sinus rhythm. * Stress ECG: No ST changes. No arrhythmias. * The stress portion of this study was personally supervised by the undersigned interpreting physician. * Rest heart rate was '82' BPM. * Rest blood pressure was '117/62' * Maximum heart rate achieved was 146 bpm. * Maximum heart rate was 92 % of maximum age-predicted heart rate. * Maximum blood pressure was '188/80' * Total exercise time was '5:37' * Maximum exercise MET level achieved was '7:00' METS * Maximum treadmill speed was '2.50' miles per hour. * Maximum treadmill elevation was '12.00'% grade. * Exercise was terminated due to 'achieving target heart rate' Left Ventricular Findings with Stress * A complete two-dimensional transthoracic echocardiogram was performed (2D, M-mode, Doppler and color flow Doppler). * A contrast injection of Definity was performed to improve assessment of LV function. * Contrast was injected into an intravenous site in the right arm. * One vial of Definity ultrasound contrast was diluted in normal saline to a total volume of 10 ml. A total of '2' ml of solution was administered during imaging. * Lot # [id number] of Definity utilized for procedure. * Expiration date 1 AUG 29. * The attending nurse who injected the contrast agent was Rema De La Torre RN. Left Ventricular Diastolic Function * Grade I diastolic dysfunction, (abnormal relaxation pattern). MMode 2D Measurements and Calculations IVSd 1.4 cm LVIDd 3.5 cm LVIDs 2.2 cm LVPWd 1.5 cm IVS/LVPW 0.95 FS 36.9 % EDV(Teich) 51.5 ml ESV(Teich) 16.5 ml EF(Teich) 67.9 % EDV(cubed) 43.5 ml ESV(cubed) 10.9 ml EF(cubed) 74.9 % LV mass(C)d 185.2 grams LV mass(C)dI 95.9 grams/m\S\2 CO(Teich) 2.7 l/min CI(Teich) 1.4 l/min/m\S\2 SV(Teich) 35.0 ml SI(Teich) 18.1 ml/m\S\2 CO(cubed) 2.5 l/min CI(cubed) 1.3 l/min/m\S\2 SV(cubed) 32.6 ml SI(cubed) 16.9 ml/m\S\2 Ao root diam 3.1 cm Ao root area 7.7 cm\S\2 ACS 1.8 cm LA dimension 3.3 cm asc Aorta Diam 3.2 cm LA/Ao 1.0 LVOT diam 2.0 cm LVOT area 3.2 cm\S\2 LVAd ap4 32.3 cm\S\2 LVLd ap4 8.5 cm EDV(MOD-sp4) 101.0 ml LVAs ap4 14.2 cm\S\2 LVLs ap4 6.4 cm ESV(MOD-sp4) 26.6 ml EF(MOD-sp4) 73.7 % LVAd ap2 23.1 cm\S\2 LVLd ap2 7.5 cm EDV(MOD-sp2) 59.6 ml LVAs ap2 9.7 cm\S\2 LVLs ap2 5.5 cm ESV(MOD-sp2) 15.9 ml EF(MOD-sp2) 73.3 % CO(MOD-sp4) 5.8 l/min CI(MOD-sp4) 3.0 l/min/m\S\2 SV(MOD-sp4) 74.4 ml SI(MOD-sp4) 38.5 ml/m\S\2 CO(MOD-sp2) 3.4 l/min CI(MOD-sp2) 1.8 l/min/m\S\2 SV(MOD-sp2) 43.7 ml SI(MOD-sp2) 22.6 ml/m\S\2 Doppler Measurements and Calculations MV E max rafael 73.7 cm/sec MV A max rafael 91.2 cm/sec MV E/A 0.81 MV dec time 0.24 sec Ao V2 max 134.2 cm/sec Ao max PG 7.2 mmHg Ao max PG (full) 2.2 mmHg JOSAFAT(V,A) 2.7 cm\S\2 JOSAFAT(V,D) 2.7 cm\S\2 LV V1 max PG 5.0 mmHg LV V1 max 112.0 cm/sec PA V2 max 93.4 cm/sec PA max PG 3.5 mmHg PA acc slope 654.3 cm/sec\S\2 PA acc time 0.10 sec TR max rafael 115.6 cm/sec PA pr(Accel) 34.6 mmHg
[2016-09-10 15:07] VITALS: BP 103/61; PULSE 75; TEMP 37.2; O2SAT 92
--- NOTE | 2016-09-10 17:58 | Discharge Summary ---
Discharge Summary Date of Service Sep 10, 2016. Discharge Summary Admission Date: Sep 09, 2016 at 17:19 Discharge Date: Sep 10, 2016 Discharge Disposition: Home Principal Diagnosis: CHEST PAIN, ACUTE CORONARY SYNDROME RULED OUT Secondary Diagnoses/Problems: PLEASE REFER TO HOSPITAL COURSE BELOW. Procedures: STRESS ECHO: Normal exercise stress echocardiogram. No echocardiographic or ECG evidence of myocardial ischemia having achieved heart rate adequate for diagnostic purposes. * -- Conclusions -- * Ejection Fraction = 65-70%. * There is moderate concentric left ventricular hypertrophy. * Grade I diastolic dysfunction, (abnormal relaxation pattern). * No significant valvular pathology. Consultations: [facility] DR. MARTINEZ Pending Studies/Follow-Up: PLEASE REFER TO HOSPITAL COURSE BELOW. Medication Reconciliation Continued Medications: Albuterol (Proair Hfa) Aers 2 PUFFS INH QID PRN for SOB/Wheezing Aspirin (Aspirin Ec) 81 Mg Tab 81 MG PO DAILY Betamethasone Dip (Betamethasone Dipropionat) 45 Appln/15 Gm Oint 1 APPLN EXT BID PRN for psoriasis Fenofibrate (Tricor ) 145 Mg Tab 145 MG PO DAILY for 30 Days, #30 TAB 5 Refills Furosemide (Furosemide) 20 Mg Tab 20 MG PO DAILY PRN for edema/ weight gain Insulin Aspart Penfill (Novolog Penfill) Inj 1 DOSE SC ACHS, BTL USE PER PATIENT SLIDING SCALE. GOAL 130. TAKE 2 UNITS FOR EVERY 15 POINTS OVER. Insulin Glargine (Lantus Solostar) 100 Unit/Ml Inj 53 UNITS SQ PM, PEN Levothyroxine Sodium (Levothyroxine Sodium) 75 Mcg Tab 1 TAB PO DAILY for 30 Days, #30 TAB 5 Refills Lisinopril (Lisinopril) 10 Mg Tab 20 MG PO DAILY, #30 Metformin Hcl (Glucophage Ext Rel) 1,000 Mg Tab 1000 MG PO BID, TAB WITH MEALS Metoprolol Tartrate (Metoprolol Tartrate) 50 Mg Tab 50 MG PO BID Nitroglycerin (Nitrostat) 0.4 Mg Tab 0.4 MG UT PRN PRN for Chest Pain, BTL PLACE ON TABLET UNDER THE TONGUE EVERY 5 MINUTES NEEDED FOR CHEST PAIN. TAKE NO MORE THAN 3 DOSES. IF CHEST PAIN IS NOT RELIEVED BY 3 DOSES CALL 911. Omeprazole (Prilosec) 20 Mg Capcr 40 MG PO DAILY, CAP Pravastatin Sodium (Pravastatin Sodium) 40 Mg Tab 40 MG PO DAILY for 90 Days, #90 TAB 1 Refill Admission Information HPI (per Admitting provider): This is a 65 y/o female with PMH of DM type 2, HTN, HL, s/p cath in February 2015 showing mild luminal irregularities, who presents to the ED with left arm pain. Pt reports episodes of ill defined pain going down her left arm and sharp pain between her shoulder blades. 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 The episodes lasted 5 minutes and were relieved completely with nitro. She had associated diaphoresis and SOB with the episodes. Patient states back in February 2015 prior to her catheterization she was having similar pain. Pt reports calling Dr. Martinez 's office and was told to come to the ER. Pt additionally reports a dry cough the past few nights while lying down. She had a few episodes of palpitations described as "heart pounding" last night and today. Pt denies dizziness, syncope , MCKEON, orthopnea, abdominal pain, N/V, urinary change, weight gain, edema, calf pain. Denies recent travel or surgery. She had baby ASA this morning. Physical Exam (per Admitting): General Appearance: no apparent distress, + pertinent finding (pleasant alert 65 y/o female) Head: normocephalic, atraumatic Eyes: normal inspection, PERRL, EOMI, sclerae normal ENT: hearing grossly normal, pharynx normal Neck: supple, no JVD, no carotid bruits, trachea midline Respiratory/Chest: lungs clear, normal breath sounds, no respiratory distress Cardiovascular: regular rate, rhythm, no murmur, normal peripheral pulses Abdomen/GI: normal bowel sounds, non tender, soft Back: + pertinent finding (no thoracic paraspinal muscle tenderness) Extremities/Musculoskelatal: no calf tenderness, no pedal edema, + pertinent finding (+ mild point tenderness on left shoulder and mild pain on ROM left shoulder) Neurologic/Psych: alert, normal mood/affect, oriented x 3, + pertinent finding (grossly nonfocal) Skin: normal color, warm/dry, no rash (no rash on the chest) Hospital Course CHEST PAIN, ACUTE CORONARY SYNDROME RULED OUT Cardic cath February 2015- no obstructive disease, mild luminal irregularities of less than 30% cardiac markers negative x 3 ekg no signs of ischemia Red Cap Dr. Martinez consulted s/p Stress Echo: non ischemic - continue Metoprolol, Lisinopril, Pravastatin - chest pain likely secondary to coughing episodes may need Pulmonary work up as outpatient also advised on diet modification as coughing may be related to GERD DM TYPE 2 Insulin dependent A1c 8.9 outpatient ff up HYPERTENSION Continue metoprolol and lisinopril HYPOTHYROIDISM TSH: 0.26- low Free t41.29- normal possible Subclinical Hyperthyroidism, ff up as outpatient HYPERTRIGLYCERIDEMIA TG 528 LDL not measurable due to elevated TG - on Pravastatin, Fenofibrate - diet, exercise monitor outpatient DVT PROPHYLAXIS Lovenox SQ given DISPOSITION d/c home ff up with PCP in 1 week ([facility] Scheduling Dept contacted, they will call patient for appointment). Total time spent on discharge = 40 minutes This includes examination of the patient, discharge planning, medication reconciliation, and communication with other providers. Discharge Instructions Discharge Instructions Admission Reason for Admission: Chest Pain Discharge Discharge Diagnosis / Problem: CHEST PAIN Discharge Goals Goal(s): Diagnostic testing, Therapeutic intervention Activity Recommendations Activity Limitations: resume your previous activity . Instructions / Follow-Up Instructions / Follow-Up PLEASE CALL PRIMARY CARE PHYSICIAN IF WITH RECURRENCE OR WORSENING OF SYMPTOMS. AVOID CARBONATED/CAFFEINATED DRINKS, ACIDIC AND SPICY FOODS. FOLLOW UP WITH DR. HUFF IN 1 WEEK (CLINIC TO CALL PATIENT WITH APPOINTMENT). Current Hospital Diet Patient's current hospital diet: Diabetes Type 2 Diet, AHA Diet (Heart Healthy) Discharge Diet Recommended Diet: AHA Diet (Heart Healthy), Diabetes Type 2 Diet Procedures Procedures Performed: Stress Test Pending Studies Studies pending at discharge: no Laboratory Results Hemoglobin A1c Test 09/10/16 07:28 Range/Units Estimated Average Glucose 209 mg/dl Hemoglobin A1c 8.9 H 4.5-5.6 % Lipid Panel Test 09/10/16 07:28 Range/Units Triglycerides Level 528 H 0-150 mg/dl Cholesterol Level 277 H 0-200 mg/dl HDL Cholesterol 36 mg/dl Cholesterol/HDL Ratio 7.7 LDL Cholesterol, Calculated mg/dl Medical Emergencies . Who to Call and When: Medical Emergencies: If at any time you feel your situation is an emergency, please call 911 immediately. . Non-Emergent Contact Non-Emergency issues call your: Primary Care Provider Call Non-Emergent contact if: you have a fever, you have any medication questions . Past History Medical & Surgical History: (1) Left sided chest pain (2) Type 2 diabetes mellitus (3) Dyslipidemia (4) Hypertension (5) Chest pain (6) GERD (gastroesophageal reflux disease) (7) Venous insufficiency (8) Hypothyroidism (9) Psoriasis (10) H/O cardiac catheterization (11) S/P appendectomy (12) S/P cholecystectomy (13) S/P tonsillectomy and adenoidectomy (14) History of hysterectomy . "Provider Documentation" section prepared by Chris Jordan. VTE Core Measure Inpt VTE Proph given/why not?: Enoxaparin (Lovenox)SQ
[2016-09-10 18:00] VITALS: BP 103/61; PULSE 75; TEMP 37.2; O2SAT 92
== END 2016-09-10 18:08 | disposition home or self-care (01) ==
LOC: ENRESERVDT → ENRESERVTM → C.EDB 12:33 → C.2T 17:19
PROVIDERS: ADMIT Family Medicine; ATTEND Internal Medicine
DX: R07.9 Chest pain, unspecified (principal); E11.9 Type 2 diabetes mellitus without complications; I10 Essential (primary) hypertension; E78.1 Pure hyperglyceridemia; K21.9 Gastro-esophageal reflux disease without esophagitis